=== PATIENT | female | born 2000 | race Two or more races ===

== ENCOUNTER 2024-11-30 23:39 | Inpatient (IN) | payer MEDICAID, SELFPAY ==
[2024-11-30 23:55] VITALS: BP 119/67; PULSE 98
[2024-12-01] VITALS (173 sets, daily range): BP systolic 102–133; BP diastolic 53–75; PULSE 69–148; RESP 16–98; TEMP 36.6–36.9; O2SAT 88–100; BMI 25.0
[2024-12-01 02:26] LABS: Basophils % (Auto) 0 % (0-2.5); Eosinophils % (Auto) 0 % (0-10); Hematocrit 33.7 % (36.0-46.0); Hemoglobin 11.2 g/dL (12.0-16.0); Immature Granulocytes % (Auto) 0 % (0-0); Immature Granulocytes Auto 0.02 Thou/mm3 (0.00-0.00); Lymphocytes # (Auto) 1.3 Thou/mm3 (1.0-4.8); Lymphocytes % (Auto) 17 % (10-50); Mean Corpuscular HGB Conc 33.2 g/dl (31.0-37.0); Mean Corpuscular Hemoglobin 28.1 pg (25.0-35.0); Mean Corpuscular Volume 85 fL (80-100); Monocytes # (Auto) 0.5 Thou/mm3 (0.0-0.8); Monocytes % (Auto) 6 % (0-12); Neutrophils # (Auto) 5.7 Thou/mm3 (1.8-7.7); Neutrophils % (Auto) 76 % (37-80); Nucleated Red Blood Cell % 0 /100 WBC (0); Platelet Count 210 Thou/mm3 (140-440); RDW Standard Deviation 38.4 fL (36.4-46.3); Red Blood Count 3.98 Miln/mm3 (4.00-5.20); White Blood Count 7.5 Thou/mm3 (3.6-11.0)
[2024-12-01] MEDS: RINGERS LACTATED 1000 ML 1,000 ML 100 ML IV (02:39)
[2024-12-01 02:54] LABS: Syphilis Nonreactive (Nonreactive)
[2024-12-01 04:52] LABS: Amphetamine/Metham Scrn,Ur OB Negative (Negative); Benzoylecgonine Screen, Ur OB Negative (Negative); Opiate Screen,Urine OB Negative (Negative); THC Screen,Urine OB Negative (Negative)
--- NOTE | 2024-12-01 05:10 | ESHP_ITS ---
Documentation for date of: 12/01/24 OB Labor/Induct. HPI History of Present Illness Chief complaint: contractions : 3 Para: 2 Term pregnancies: 2 pregnancies: 0 Living children: 2 History of Abortions: Spontaneous and Elective: 0 History of Vaginal deliveries: 2 History of sections: No VICENTE: 12/05/24 Gestational Age (weeks): 39 Gestational Age (days): 3 History of present illness: Patient presents with regular/painful ctx. No LOF, no vaginal bleeding. Feels normal movement. History of Present Adequate Care: Yes Narrative: Hx of term x2, proven to [id number] Labs Maternal Blood Type: A Pos Labs: Positive: Group Beta Strep and Negative: RPR, Hepatitis B, HIV, Chlamydia and Gonorrhea Narrative: HCV ab non-reactive. Cannabinoid positive on 05/29/24. GBS positive by urine on 05/29/24. NIPT negative. CF negative. HgbA1c 5.3. 1hr glucose 114. Review of Systems Review of Systems Narrative Review of Systems: Review of Systems Systems Reviewed: All systems reviewed, normal except as documented Constitutional Constitutional: Denies body ache(s), Denies chills, Denies fever(s) and Denies headache(s) ENT Ears, Nose, Mouth, and Throat: Denies headache(s) and Denies vertigo Cardiovascular Cardiovascular: Denies chest pain, Denies palpitations, Denies dyspnea and Denies syncope Respiratory Respiratory: Denies cough, Denies dyspnea Gastrointestinal Gastrointestinal: Denies nausea and Denies vomiting Neurologic Neurologic: Denies convulsions, Denies headache(s), Denies other visual disturbances, Denies syncope and Denies vertigo Past Medical History Surgical History SURGICAL: Negative Section OTHER SURGICAL HX: denies any Social History SOCIAL: No tobacco, +THC, no illicit drug use, no ETOH Past Medical History Comments PMH COMMENT: denies PMhx Meds Home Medications and Allergies Home Medications ?Medication ?Instructions ?Recorded ?Confirmed ?Type vits no.124-ferrous fum 1 tab PO QDAY 1 12/01/24 History 27 mg iron-folic acid 800 mcg tablet ( Vitamin) Allergies Allergy/AdvReac Type Severity Reaction Status Date / Time No Known Allergies Allergy Verified 12/01/24 00:54 OB Exam Physical Exam Vital signs: Temp Pulse Resp BP Pulse Ox 98 F 80 18 113/61 98 12/01/24 00:07 12/01/24 05:07 12/01/24 00:07 12/01/24 05:07 12/01/24 05:05 Narrative: General: well developed, well nourished, no acute distress, conversant Cardiac: normal heart rate Lungs: breathing without distress Abdomen: soft, gravid, non-tender, no rebound or guarding Extremities: no pain with palpation of calves Detailed Labor and Delivery Exam Dilation (cm): 5 Effacement (%): 80 Cervix position: mid station: -2 Consistency: soft Presentation: Vertex Membranes: intact monitor accelerations: 15x15 monitor decelerations: None tank terminal gauger variability: Moderate (11-25) Contraction frequency (min): q3-5min OB Results Labs 12/01/24 01:57 Labs: Short CBC 12/01/24 Range/Units 01:57 WBC 7.5 (3.6-11.0) Thou/mm3 Hgb 11.2 L (12.0-16.0) g/dL Hct 33.7 L (36.0-46.0) % Plt Count 210 (140-440) Thou/mm3 OB Assessment & Plan Assessment and Plan (1) Active labor at term: Status: Acute Assessment and plan: Patient is a 24yo with SIUP at 39+3wk presenting in active labor. Regular/painful contractions, SCE: 5/80/-2. Vitals wnl, benign exam. Reassuring assessment. PMhx/ complicated by: -No office records to review at time of admission (only labs), hx is per patient -Positive cannabinoids on UDS -GBS positive urine in June Plan: -Admit to L&D -Establish IV, routine labs including UDS -CEFM -Clear liquid diet -Traffic Controller Cable/consent re: -GBS status: positive. IV ampicillin per protocol -Anticipate -Safe to proceed
[2024-12-01] MEDS: Ampicillin Inj 2,000 MG in SODIUM CHLORIDE 0.9% (P) 100 ML 200 MG IV (06:13)
--- NOTE | 2024-12-01 06:58 | PD.LDPN ---
Documentation for date of: 12/01/24 OB Labor Progress Note Pelvic Exam Dilation (cm): 5 Effacement (%): 80 station: -2 Contractions Contraction frequency: q3-5min Status status: Category l Assessment and Plan Comments: Intrapartum Note Patient doing well with epidural in place, feeling more rectal pressure. Vitals wnl, afebrile Cat 1 FHRT SCE: ortiz bulb in bladder was ahead of head, so pushed up easily and after that SCE is anterior lip (easily reducible)/C/-1 Plan: -Will allow a few ctx worth of passive descent and then begin pushing -Anticipate -Safe to proceed Tiki Asif MD
[2024-12-01] MEDS: OXYTOCIN in NS 20 units 20 UNIT/1,000 ML BAG 125 UNIT IV (07:20)
[2024-12-01] MEDS: METHYLERGONOVINE INJ 0.2 MG/ML VIAL IM (07:22)
--- NOTE | 2024-12-01 08:01 | PD.LDDELS ---
Data ([facility]) Data Hx Section: No : 3 Para: 2 Term: 2 : 0 : 0 Delivery Data ([facility]) Labor Data ROM Date: 12/01/24 ROM Time: 05:15 Rupture Type: AROM Amniotic Fluid: Clear Delivery Data Labor Onset Stage 1 Date: 12/01/24 Labor Onset Stage 1 Time: 03:50 Labor Onset Stage 2 Date: 12/01/24 Labor Onset Stage 2 Time: 06:56 Delivery Date: 12/01/24 Delivery Time: 07:17 Placenta Delivery Date: 12/01/24 Placenta Delivery Time: 07:17 Delivered by: Tiki Asif Delivery nurse: Maribel Broussard Other staff at delivery: Nursery Nurse Other staff at delivery: Trish De La Cruz Delivery Method Delivery: Vaginal Delivery Type: Spontaneous Presentation: Vertex Anesthesia Type Primary Anesthesia: Epidural Delivery Room Medications Other Intrapartum Medications: Yes Placenta Placenta Delivery: Spontaneous Cord Sample: Cord Blood Obtained EBL Estimated blood loss (ml): 300 Umbilical Cord Umbilical Vessels: 3 Nuchal Cord: None Body Cord: None Additional Procedures Patient is a 24yo [id number] s/p uncomplicated at 39+wk after presenting in active labor, delivering at 0717 on 12/01/2024. On presentation, SCE was 5cm. She progressed without augmentation to C/C/0 at which point she began pushing. She had received an epidural. With good maternal pushing efforts, 's head delivered OA and restituted MARYA. Left anterior shoulder delivered easily followed by posterior shoulder and corpus. Infant had spontaneous cry and was vigorous. Apgars 8/9. placed on maternal abdomen where nose/mouth were suctioned and infant dried/stimulated. After approximately 1 minute, cord was clamped x2 and cut by FOB. Cord blood collected for typing. With fundal massage and cord traction, placenta delivered spontaneously and intact with 3 vessel centrally inserted cord. Bimanual massage performed and IV pitocin given per protocol with fundus then firm at u-2cm and hemostasis noted. Inspection of perineum and vagina revealed no lacerations. Small trickle of blood, so sweep just within cervix/BURKE performed which retrieved a small amount of clot. 0.2mg IM methergine given with observed hemostasis after. All counts correct x2. Mom and infant were doing well when I left the room. Tiki Asif MD Complications Complications: none [place] Data ([facility]) Data Infant Gender: Male Identification Band Number: [id number] Weight Grams: 3500 1 Minute Total: 8 5 Minute Total: 9
[2024-12-01] MEDS: IBUPROFEN TAB 400 MG TABLET 800 MG PO ×2 (08:37→16:34)
[2024-12-01] MEDS: ACETAMINOPHEN 325 MG TABLET 650 MG PO ×2 (11:13→18:12)
[2024-12-01] MEDS: PRENATAL VITAMIN/FE FUM/FA TABLET 1 TAB PO (11:13)
[2024-12-01] MEDS: DOCUSATE SOD 100 MG CAPSULE PO ×2 (11:13→22:04)
--- NOTE | 2024-12-01 13:14 | PC.NURSE ---
1245: ISABEL GILLIS CRNA CALLED BY RN. PATIENT IS REPORTING A THROBBING HEADACHE 10/10 ON NUMERIC PAIN SCALE, STIFFNESS AND PAIN TO NECK, AND NAUSEA. BLOOD SUGAR CHECKED 86, VITAL SIGNS WNL. PATIENT HAD MOTRIN AT 0830 THAT HELPED WITH THE HEADACHE BUT BY 1100 THE HEADACHE CAME BACK. TYLENOL WAS GIVEN AT 1100. NO PAIN RELIEF WITH THE TYLENOL. NET APPLICATIONS DEVELOPER WANTS THE RN TO ASK THE PATIENT IF SHE IS INTERESTED IN HAVING A BLOOD PATCH DONE AND TO CALL NET APPLICATIONS DEVELOPER BACK WITH HER ANSWER. 1256: RN CALLED NET APPLICATIONS DEVELOPER BACK. NET APPLICATIONS DEVELOPER REPORTS TO RN HE BELIEVES IT IS A TRUE EPIDURAL HEADACHE AFTER SPEAKING WITH NET APPLICATIONS DEVELOPER WHO PLACED THE EPIDURAL AND HE WILL BE UP TO SPEAK WITH THE PATIENT REGARDING POSSIBLE INTERVENTIONS TO HELP WITH HER HEADACHE. 1300: ISABEL GILLIS CRNA AND TALYA BOYER ON THE UNIT.
[2024-12-01] MEDS: ACETAMINOPHEN 325 MG TABLET PO (22:04)
[2024-12-02 00:30] VITALS: BP 109/71; PULSE 77; RESP 19; TEMP 36.8; O2SAT 98
[2024-12-02] MEDS: IBUPROFEN TAB 400 MG TABLET 800 MG PO ×2 (04:39→13:38)
[2024-12-02 05:24] VITALS: BP 121/86; PULSE 73; RESP 17; TEMP 36.5; O2SAT 100
[2024-12-02 06:04] LABS: Basophils % (Auto) 0 % (0-2.5); Eosinophils % (Auto) 0 % (0-10); Hematocrit 30.9 % (36.0-46.0); Hemoglobin 10.1 g/dL (12.0-16.0); Immature Granulocytes % (Auto) 0 % (0-0); Immature Granulocytes Auto 0.02 Thou/mm3 (0.00-0.00); Lymphocytes % (Auto) 14 % (10-50); Mean Corpuscular HGB Conc 32.7 g/dl (31.0-37.0); Mean Corpuscular Hemoglobin 28.2 pg (25.0-35.0); Mean Corpuscular Volume 86 fL (80-100); Monocytes # (Auto) 0.4 Thou/mm3 (0.0-0.8); Monocytes % (Auto) 5 % (0-12); Neutrophils # (Auto) 5.3 Thou/mm3 (1.8-7.7); Neutrophils % (Auto) 80 % (37-80); Nucleated Red Blood Cell % 0 /100 WBC (0); Platelet Count 187 Thou/mm3 (140-440); RDW Standard Deviation 39.7 fL (36.4-46.3); Red Blood Count 3.58 Miln/mm3 (4.00-5.20); White Blood Count 6.7 Thou/mm3 (3.6-11.0)
[2024-12-02 07:40] VITALS: BP 115/71; PULSE 78; RESP 20; TEMP 36.7; O2SAT 97
[2024-12-02] MEDS: DOCUSATE SOD 100 MG CAPSULE PO (08:00)
[2024-12-02] MEDS: Hydrocortisone Cr 1% 30 GM TUBE TOP (08:00)
[2024-12-02] MEDS: PRENATAL VITAMIN/FE FUM/FA TABLET 1 TAB PO (08:00)
--- NOTE | 2024-12-02 11:15 | PD.LDDS ---
DS: Providers Provider Date of admission: 12/01/24 01:55 Primary care physician: Physician No Primary/Family Admitting Provider: Tiki Asif MD Attending Provider on Admission: Aleks Melissa MD Consults: 12/01/24 07:31 Referral Routine Comment: Attending Provider on DC: Aleks Melissa MD Discharging Provider: Aleks Melissa MD DS: Diagnosis Problem List Completed Was Problem List Reviewed/Reconciled?: Yes Summary/Hosp Course Brief History: Patient was seen at the bedside is doing well denies any vaginal bleeding, fever. Patient had uncomplicated normal vaginal delivery yesterday, has also been uncomplicated Status at Discharge Cognitive/behavioral status at discharge: Stable Time Spent with Patient Time attestation: Total time spent providing and/or coordinating discharge services: Exam Vital Signs Temp Pulse Resp BP Pulse Ox O2 Del Method 98.1 F 78 20 115/71 97 Room Air 12/02/24 07:40 12/02/24 07:40 12/02/24 07:40 12/02/24 07:40 12/02/24 07:40 12/02/24 07:40 Constitutional Constitutional: no acute distress Routine HEENT Exam Head: Present normocephalic and atraumatic Eye: Present EOMI and PERRL ENT: Present mucous membranes moist Routine Neck Exam Neck: Present supple and trachea midline Routine Respiratory Exam Respiratory: Present chest non-tender, lungs clear, normal breath sounds and no resp distress Routine Cardiovascular Exam Cardiovascular: Present RRR Routine Abdominal Exam Abdominal: Present soft and normoactive bowel sounds Routine Extremities Exam Extremities: Present full ROM Routine Skin Exam Skin: Present intact, dry and warm Routine Neurological Exam Neurological: Present alert, oriented X3 and CN II-XII intact Routine Psychiatric Exam Psychiatric: Present normal affect and normal thought process Discharge Plan Plan Patient Disposition: HOME (Self Care) Prescriptions/Referrals Prescriptions/Med Rec: New ibuprofen 800 mg tablet 800 mg PO Q8H PRN (Reason: pain) Qty: 30 0RF No Action Vitamin 27 mg iron- 800 mcg Tablet 1 tab PO QDAY Referrals: No Primary/Family,Physician [Primary Care Provider] - Patient/Caregiver Discharge Instructions Print Language: Amharic Stand Alone Forms: Roseanne Award Info., Patient Portal Info Letter Discharge Order Discharge Orders: Discharge (Routine); Ordered 12/02/24 Ordered By: Aleks Melissa Planned Discharge Date 12/02/24
[2024-12-02] MEDS: ACETAMINOPHEN 325 MG TABLET 650 MG PO ×2 (12:17→17:37)
--- NOTE | 2024-12-02 15:45 | PC.CC ---
Debby Heredia is a 35-year-old female admitted for labor and delivery care. Assistant [employer]m Of [employer] Delivery made contact with Pt at bedside to complete ob assessment and discuss discharge disposition. Role and reason for the contact was explained to Pt. Demographic information was verified. Pt identified La Nena Mata [phone] as surrogate decision maker. Pt is independent with all ADLs, no source of DME. PCP is [facility]. At time of discharge patient will return home, family will provide transportation. Assistant [employer] Of [employer] Delivery reviewed resources with Pt. Discharge Plan: Home Next of Kin: La Nena Mata [phone] PCP: [facility]
[2024-12-02 16:43] VITALS: BP 112/67; PULSE 62; RESP 18; TEMP 36.6; O2SAT 98
--- NOTE | 2024-12-02 18:05 | PC.NURSE ---
SSW REPORTED TO RN SHE SEEN PATIENT AND PATIENT IS CLEARED TO DISCHARGE HOME UPON MEDICAL CLEARANCE
== END 2024-12-02 18:00 | disposition home or self-care (01) | DRG 560 ==
LOC: S4SX 12-01 08:40 → S4NX 12-01 10:22
PROVIDERS: Admitting Provider Obstetrics & Gynecology; Visit Provider Student in an Organized Health Care Education/Training Program
DX: O99.824 Streptococcus B carrier state complicating childbirth (principal); Z37.0 Single live birth; Z3A.39 39 weeks gestation of pregnancy
CPT/HCPCS: 36415; 59025; 59899; 80307; 85025; 86780; 86850; 86900; 86901; J0290; J2210; J2590; J2795; J7120; A9270